=== PATIENT | female | born 1975 | race American Indian/Alaskan Native ===

== ENCOUNTER 2020-10-01 07:05 | Observation (INO) | payer OTHER ==
[2020-09-26 10:45] LABS: Basophils % (Auto) 0.5 % (0.0-1.8); Eosinophils % (Auto) 0.9 % (0.0-4.3); Hematocrit 21.9 % (30.3-42.9); Hemoglobin 6.6 gm/dl (10.1-14.3); Lymphocytes # (Auto) 1.2 K/mm3 (1.2-5.4); Lymphocytes % (Auto) 22.2 % (13.4-35.0); Mean Corpuscular HGB Conc 30 % (30-34); Mean Corpuscular Volume 61 fl (79-97); Monocytes # (Auto) 0.4 K/mm3 (0.0-0.8); Monocytes % (Auto) 7.1 % (0.0-7.3); Platelet Count 255 K/mm3 (140-440); Red Blood Count 3.62 M/mm3 (3.65-5.03); Red Cell Distribution Width 19.3 % (13.2-15.2)
--- NOTE | 2020-09-30 14:17 | History and Physical Report ---
History of Present Illness Date of examination: 09/23/20 Chief complaint: Menorrhagia, anemia and uterine fibroids History of present illness: This is a 44 year-old female with a long history of menorrhagia, uterine fibroids and anemia. She's required multiple blood transfusions and her bleeding has been unresponsive to medical therapy and conservative surgical intervention. She presents now for definitive therapy in the form of hysterectomy with removal of both fallopian tubes. Menstrual History: LMP (date): 09/10/2020 LMP - Character: heavy Menarche: 14 Menses interval: 28 days Menstrual flow: 7 days Past History : 3 Term Births: 3 Living Children: 2 # 1 Delivery date: 1992 Delivery type: # 2 Delivery type: Comments: killed # 3 Delivery type: QUALITY PROCESS AUDITOR History Operations: Myomectomy (2013) Endometrial Ablation: (2018) Tubal Ligation (2002) Abnormal PAP: negative Uterine Anomaly: positive fibroids Infection History HIV Risk Eval: no Hx of STD: None Active Medications (reviewed today): TRANEXAMIC ACID 650 MG ORAL TABLET (TRANEXAMIC ACID) 1300 mg(2 tabs) 3 times daily (3900 mg daily) for up to 5 days during monthly menstruation VITAMIN D (CHOLECALCIFEROL) 25 MCG (1000 UT) ORAL CAPSULE (CHOLECALCIFEROL) MULTIVITAMINS ORAL CAPSULE (MULTIPLE VITAMIN) EQL IRON SUPPLEMENT THERAPY 325 MG ORAL TABLET (FERROUS SULFATE) LEXAPRO TABLET (ESCITALOPRAM OXALATE TABS) DICLOFENAC SODIUM ER TABLET EXTENDED RELEASE 24 HOUR (DICLOFENAC SODIUM XR24H- TAB) Current Allergies (reviewed today): No known allergies Past Medical History: Reviewed history from 07/01/2020 and no changes required: Blood Transfusion x4 over the last 2year Anxiety/PTSD Depression Back Pain Anemia Past Surgical History: Reviewed history from 05/27/2020 and no changes required: Myomectomy (2013) Endometrial Ablation: (2018) Tubal Ligation (2002) Family History Summary: Reviewed history and no changes required: 09/30/2020 Other Family Member - Has No Family History of Uterine Cancer - Entered On: 06/30/2020 Other Family Member - Has No Family History of Small Bowel Cancer - Entered On: 06/30/2020 Other Family Member - Has No Family History of Stomach Cancer - Entered On: 06/30/2020 Other Family Member - Has No Family History of Pancreatic Cancer - Entered On: 06/30/2020 Other Family Member - Has No Family History of Kidney/Urinary Tract Cancer - Entered On: 06/30/2020 Other Family Member - Has No Family History of Spontaneous DVT-PE - Entered On: 06/30/2020 Other Family Member - Has No Family History of Colon Cancer - Entered On: Other Family Member - Has No Family History of Brain Cancer - Entered On: 06/30/2020 Other Family Member - Has No Family History of Breast Cancer - Entered On: 06/30/2020 Other Family Member - Has No Family History of Biliary Tract Cancer - Entered On: 06/30/2020 Mother - Has Family History of Ovarian Cancer - diagnosed age 51, now 60yo - Entered On: 06/30/2020 Social History: Reviewed history from 05/27/2020 and no changes required: Patient is Smoking History: Patient has never smoked. Risk Factors: Smoked Tobacco Use: Never smoker Alcohol use: yes Type: occ Previous Tobacco Use: Signed On - 07/01/2020 Smoked Tobacco Use: Never smoker Smokeless Tobacco Use: Never Drug use: no HIV high-risk behavior: no Previous Alcohol Use: Signed On - 07/01/2020 Alcohol use: yes Type: occ Drinks per day: social Exercise: yes Seatbelt use: 100 % PAP Smear History: Date of Last PAP Smear: 05/27/2020 Physical Exam Appearance: well developed, well nourished, no acute distress Other Exams Lungs: no rales, rhonchi, or wheezes Heart: S1, S2, no murmur, rub, or gallop Genitourinary Exam Uterus: deferred for EUA Impression & Recommendations: Problem # 1: Excessive and frequent menstruation with regular cycle (ICD-626.2) ([id number]) Diagnosis explained to patient . Discussed with patient various medical, surgic al and radiological therapies common for treatment including, but not limited to, myomectomy, hysterectomy and uterine artery embolization. Discussed risks and benefits of laparotomy, laparoscopy, vaginal and robotic assisted approaches for hysterectomies. Patient desires definitive treatment in the form of robot assisted laparoscopic total hysterectomy. The risks and alternatives for this surgery were reviewed with the patient. She was informed of the risks of the surgery including, but not limited to, pain, infection, bleeding possibly heavy enough to require a blood transfusion with associated risks of infections (hepatitis and HIV) and transfusion reactions, possible damage to bowel, bladder or ureter(s) and surrounding organs. . Patient understands that this surgery will make her sterile. Indications to abort a robotic/laparoscopic procedure and perform an open procedure were explained. Patient understands if her ovaries are removed she will become menopausal. She desires ovarian conservation. She was informed she may require surgery later to have her ovaries removed for a benign or mailgnant condition Patient advised the small risks of spreading of malignancy if morcellation is required during the surgery patient understands and approves performing if necessary. Questions answered. Consent reviewed and signed The patient was instructed/informed the following: The normal length of hospital stay for this procedure. Nothing to eat or drink after midnight the evening prior to surgery.. Pre-op instruction sheets given. Wound care instructions given. Problem # 2: Fibroids of uterus; Intramural (ICD-218.1) (IXQ89-A63.1) Problem # 3: Anemia secondary to blood loss (chronic) (ICD-280.0) (QAQ62-X86.0) Medications and Allergies Allergies Allergy/AdvReac Type Severity Reaction Status Date / Time No Known Allergies Allergy Unverified 09/25/20 13:46 Home Medications Medication Instructions Recorded Confirmed Last Taken Type Escitalopram [Lexapro] 10 mg PO DAILY 09/25/20 09/25/20 Unknown History Ferrous Sulfate [Iron 325 MG] 325 mg PO TID 09/25/20 09/25/20 Unknown History Active Meds: Active Medications Cefazolin Sodium (Ancef/Sterile Water 2 Gm/20 Ml) 2 gm in 20 mls @ 80 mls/hr IV PREOP NR; Protocol Exam Vital Signs Temp Pulse Resp BP Pulse Ox 98.7 F 82 18 106/53 99 09/26/20 10:20 09/26/20 10:20 09/26/20 10:20 09/26/20 10:20 09/26/20 10:20 Results - Labs 09/26/20 06:00 Assessment and Plan - Patient Problems (1) Excessive and frequent menstruation with regular cycle Status: Acute (2) Intramural leiomyoma of uterus Status: Acute (3) Anemia Status: Chronic (4) PTSD (post-traumatic stress disorder) Status: Chronic (5) Depression Status: Chronic (6) Body mass index 37.0-37.9, adult Status: Chronic
[2020-10-01] MEDS ORDERED: MAGNESIUM OXIDE 400 MG TAB PO ONE (08:04)
[2020-10-01] MEDS ORDERED: fentaNYL 100 MCG/2 ML INJ IV NR (08:04)
[2020-10-01] MEDS ORDERED: HYDROmorphone 1 MG/1 ML INJ IV PRN ×2 (08:04)
[2020-10-01] MEDS ORDERED: ONDANSETRON 4 MG/2 ML INJ IV PRN ×2 (08:04→16:20)
[2020-10-01] MEDS ORDERED: ACETAMINOPHEN 500 MG TAB PO NR (08:04)
--- NOTE | 2020-10-01 08:10 | Anesthesia Day of Surgery ---
Anesthesia Day of Surgery - Day of Surgery Patient Examined: Yes Patient H&P Reviewed: Yes Patient is NPO: Yes
[2020-10-01 08:12] LABS: Hematocrit 26.5 % (30.3-42.9); Hemoglobin 8.1 gm/dl (10.1-14.3)
--- NOTE | 2020-10-01 08:12 | Anesthesia Consultation ---
Anesthesia Consult and Med Hx Date of service: 10/01/20 - Airway Anesthetic Teeth Evaluation: Good ROM Head & Neck: Adequate Mental/Hyoid Distance: Adequate Mallampati Class: Class II Intubation Access Assessment: Good - Pre-Operative Health Status ASA Pre-Surgery Classification: ASA2 Proposed Anesthetic Plan: General Nerve Block: TAP - Pulmonary Hx Smoking: No - Cardiovascular System Hx Hypertension: No - Central Nervous System Hx Psychiatric Problems: Yes - Gastrointestinal Hx Gastroesophageal Reflux Disease: No - Endocrine Hx Non-Insulin Dependent Diabetes: No - Hematic Hx Anemia: Yes (Hgb 6.6--> received 2u PRBC) Hx Sickle Cell Disease: No - Other Systems Hx Cancer: No Hx Obesity: Yes
[2020-10-01] MEDS ORDERED: LACTATED RINGERS 1,000 ML IV SCH (08:15)
[2020-10-01] MEDS ORDERED: BUPIVACAINE/PF (0.25%) 2.5 MG/ML 30 ML VIAL INFILTRATI ONE (08:17)
[2020-10-01] MEDS ORDERED: dexAMETHasone 4 MG/ML VIAL ONE (08:17)
[2020-10-01] MEDS ORDERED: NEOSTIGMINE 10MG/10 ML INJ MDV ONE (08:48)
[2020-10-01] MEDS ORDERED: ONDANSETRON 4 MG/2 ML INJ ONE (08:48)
[2020-10-01] MEDS ORDERED: fentaNYL 100 MCG/2 ML INJ ONE (08:48)
[2020-10-01] MEDS ORDERED: ROCURONIUM 50 MG/5 ML INJ IV ONE (08:48)
[2020-10-01] MEDS ORDERED: GLYCOPYRROLATE 0.4 MG/2 ML INJ ONE (08:48)
[2020-10-01] MEDS ORDERED: HYDROmorphone 1 MG/1 ML INJ ONE (08:48)
[2020-10-01] MEDS ORDERED: dexAMETHasone 20 MG/5 ML VIAL ONE (08:48)
[2020-10-01] MEDS ORDERED: SUCCINYLCHOLINE CHLORIDE 200 MG/10 ML INJ MDV ONE (08:48)
[2020-10-01] MEDS ORDERED: propofoL 200 MG/20 ML VIAL IV ONE (08:49)
[2020-10-01] MEDS ORDERED: MIDAZOLAM 2 MG/2 ML INJ IV NR (09:00)
[2020-10-01] MEDS ORDERED: ceFAZolin/Water 2 GM/20 ML 2 GM/20 ML SYRINGE IV NR (09:00)
[2020-10-01] MEDS ORDERED: GABAPENTIN 300 MG CAP PO NR (09:00)
[2020-10-01] MEDS ORDERED: CELECOXIB 200 MG CAP PO NR (09:00)
[2020-10-01] MEDS ORDERED: NEOMY 40 MG/POLYMYXIN B 200,000 UNITS/ML (GU) AMPULE IR ONE ×2 (10:44→12:33)
[2020-10-01] MEDS ORDERED: SODIUM CHLORIDE 0.9% 500 ML 500 ML IV NR (11:10)
[2020-10-01] MEDS ORDERED: CITRIC ACID-SOD CITRATE 500 ML IV ONE (11:41)
[2020-10-01] MEDS ORDERED: SODIUM CHLORIDE 0.9% IRRIG SOLN 2000 ML IR ONE (12:34)
[2020-10-01] MEDS ORDERED: CITRIC ACID-SOD CITRATE SOLN 500 ML IV SOLN IV ONE (12:34)
[2020-10-01] MEDS ORDERED: SUGAMMADEX SODIUM 200 MG/2 ML VIAL IV ONE (13:51)
--- NOTE | 2020-10-01 14:21 | Post Anesthesia Evaluation ---
- Post Anesthesia Evaluation Patient Participated: Yes Airway Patent: Yes Stable Respiratory Function: Yes Nausea/Vomiting: No Temp > 96.8F: Yes Pain Manageable: Yes Adequeate Hydration: Yes Anesthesia Complications: No Block Receding Appropriately: Yes Patient on Ventilator: No
[2020-10-01] MEDS ORDERED: traMADol 50 MG TAB PO PRN (16:20)
[2020-10-01] MEDS ORDERED: METOCLOPRAMIDE 10 MG/2 ML INJ IV PRN (16:20)
[2020-10-01] MEDS ORDERED: D5W/LACTATED RINGERS 1,000 ML IV SCH (16:20)
[2020-10-01] MEDS: ceFAZolin/NS 1 GM/50 ML 1 GM/50 ML BAG IV SCH (17:19)
[2020-10-01] MEDS ORDERED: ACETAMINOPHEN 325 MG TAB PO SCH (18:00)
[2020-10-01] MEDS: ACETAMINOPHEN 500 MG TAB PO SCH (18:12)
[2020-10-01 19:04] LABS: Hematocrit 26.2 % (30.3-42.9); Hemoglobin 8.1 gm/dl (10.1-14.3)
[2020-10-01] MEDS: KETOROLAC 30 MG/1 ML INJ IV SCH (20:59)
[2020-10-01] MEDS: DOCUSATE SODIUM 100 MG CAP PO SCH (21:00)
[2020-10-01] MEDS: FAMOTIDINE 20 MG TAB PO SCH (21:00)
--- NOTE | 2020-10-01 22:24 | Operative Report ---
Operative Report Operative Report: Date: 10/01/2020 Preoperative diagnosis: 1. Menorrhagia 2. Uterine fibroid 3. Body mass index of 37 kg/m 4. 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 PTSD 6. Depression Postoperative diagnosis: 1. Menorrhagia 2. Uterine fibroid 3. Body mass index of 37 kg/m 4. 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 PTSD 6. Depression 7. Pelvic adhesions 8. Endometriosis Procedure: 1. Robotic-assisted laparoscopic total hysterectomy with bilateral salpingectomy 2. Ablation endometriosis on the right uterosacral 3. Lysis of adhesions Surgeon: Coby Barr MD Seed Sorter: Monica Mcconnell CSA Anesthesiologist: Dr. Dr. Cerrato Anesthesia: General endotracheal anesthesia EBL: Approximately 100 mL Findings: EUA: Uterus palpated to approximately 16 weeks. Uterus was sounded to 14 cm. Flow brings noted on both fallopian tubes. She had an adhesion of the anterior uterus to the anterior abdominal wall. Multiple thin adhesions were noted involving the posterior uterus to the bowel and pelvic sidewall. Endometrial implants were noted on bilateral uterosacral ligaments. Procedure: Patient was taken to the OR and placed in the supine position. General anesthesia was induced and an oral gastric tube was placed. Her neck and head were placed on foam support. Foam eye protection with goggles were secured in place. Then foam face protection was placed and secured. Foam shoulder pads were then positioned on her shoulders for Trendelenburg positioning. She was then placed in dorsolithotomy position. Exam under anesthesia as above. The abdomen and vagina were then prepped and draped in the usual sterile fashion. Timeout was performed. A Harris catheter was inserted into the bladder with drainage of clear yellow urine. The operative speculum was introduced into the vagina and the anterior lip of the cervix was grasped with single-toothed tenaculum. The uterus was sounded to 14 cm. The cervix was progressively dilated to allow the large V care uterine manipulator. The bulb of the manipulator was inflated and the speculum and tenaculum were removed. The cup of the manipulator was placed around the cervix and the blue occluder of the manipulator was properly positioned in the vagina and secured. A laparotomy sponge that was saturated with a solution of polymyxin and saline was placed in the vagina to ensure pneumoperitoneum. Sterile gloves were placed and attention was turned to the abdomen. A 10 mm midline vertical supraumbilical incision was made approximately 10 cm superior to the elevated fundus of the uterus. A 10-12 mm trocar with the laparoscope and camera attached was introduced through this incision under direct visualization. The abdomen was insufflated. No obvious bowel, bladder, ureteral, or major vascular injury was noted. The patient was then placed in steep Trendelenburg position and the following trochars were placed under direct visualization: 8 mm robotic trochars were placed through incisions made in the bilateral midclavicular lower abdominal region approximately 10 cm lateral to the midline incision, and a 5 mm trocar was placed through an incision made in the right lower lateral pelvis. The 10 mm laparoscope was then replaced by a 5 mm laparoscope that was placed through the 5 millimeter lateral trocar. The 12 mm trocar was then removed and the Caesar Acevedo fascial closure device was placed through the incision and a 0 Vicryl was placed through the fascia. Once the suture was secured the 12 mm trocar was reintroduced. Once the trochars were in the appropriate positions, the da Caity robot system was engaged. The EndoShears and bipolar device was placed through the 8 mm trochars and positioned then attention was turned to the console. The uterus was elevated and bilateral salpingectomy was performed in the usual fashion. Each tube was removed through the 5 mm trocar and sent to pathology in separate containers. The above-mentioned adhesions were then released to restore anatomy. Then the utero-ovarian ligaments were clamped, cauterized and incised bilaterally using 30 W of energy. Then the round ligaments were clamped, cauterized and incised bilaterally. The anterior leaf of the broad ligament was elevated and with careful blunt and sharp dissection the bladder flap was created and dissected away from the lower uterine segment and cervix. She was noted to have thickening of the right broad ligament. With careful blunt and sharp dissection the posterior leaf of the broad ligament was dissected away from the uterine vessels. The cup of the uterine manipulator was palpated both anteriorly and posteriorly. The bladder was further dissected away from the lower uterine segment. The uterine vessels were then clamped and cauterized bilaterally. Blanching of the uterus was then noted. Attention was again turned to the anterior lower uterine segment and the bladder was confirmed to be away from the operative field. Then attention was turned again to the posterior where the cup of the manipulator was palpated. At this point the endometrial implants were ablated. Then a colpotomy was performed down to the cup. The incision was extended in the lateral position to the uterine vessels that were again clamped and cauterized and incised. Continuing along the cup of the manipulator in a circumferential manner the colpotomy was completed. The uterus and cervix were then removed through the vaginal incision. The pelvis was irrigated with warm normal saline. A moist laparotomy sponge was placed in the vagina to maintain pneumoperitoneum. The vagina cuff was reapproximated using V LOC 180 suture. T hen a J stitch was performed to secure the suture. Again the pelvis was copiously irrigated with polymixin in warm normal saline. The laparotomy sponge was removed from the vagina. No obvious evidence of bowel, bladder, ureteral, or major vascular injury was noted. Once hemostasis was noted, Obey was applied to the operative field to ensure hemostasis. Then the instruments were removed, the robot was disengaged. The 12 mm trocar was removed and the fascia was ligated with the 0 Vicryl suture that was placed at the beginning of the procedure. The patient was taken out of Trendelenburg position, the abdomen was desufflated, the remaining trochars were removed. Incisions were reapproximated using 4-0 Monocryl in a subcuticular manner. Surgiseal was placed over the other incisions. The vagina was then inspected, the cuff was palpated to be intact and no bleeding was noted and clear yellow urine was draining into the Harris bag from the bladder at the end of the procedure. Counts were correct 3. Patient was taken to recovery room in stable condition.
[2020-10-01] MEDS: MORPHINE 4 MG/1 ML INJ IV PRN (22:40)
--- NOTE | 2020-10-01 22:44 | Progress Note ---
Assessment and Plan No complaints, good UO Operative findings and procedure explained. Plan of care discussed. Questions encouraged and answered. - Patient Problems (1) History of robot-assisted laparoscopic hysterectomy Current Visit: Yes Status: Acute (2) Anemia Current Visit: No Status: Chronic Plan to address problem: stable (3) Depression Current Visit: No Status: Chronic (4) PTSD (post-traumatic stress disorder) Current Visit: No Status: Chronic (5) Excessive and frequent menstruation with regular cycle Current Visit: No Status: Resolved (6) Intramural leiomyoma of uterus Current Visit: No Status: Resolved (7) Body mass index 37.0-37.9, adult Current Visit: No Status: Chronic Subjective - Subjective Date of service: 10/01/20 Principal diagnosis: DOS s/p RALTH Interval history: No complaints, good UO Objective - Vital Signs Latest vital signs: Vital Signs Temp Pulse Resp BP BP Pulse Ox 10/01/20 22:40 18 10/01/20 20:59 18 10/01/20 19:12 18 10/01/20 16:00 97.5 F L 62 12 111/58 94 10/01/20 15:45 97.5 F L 61 16 111/58 93 10/01/20 15:30 61 13 109/55 96 10/01/20 15:15 58 L 14 107/51 96 10/01/20 15:00 58 L 13 108/52 96 10/01/20 14:45 58 L 15 113/51 96 10/01/20 14:30 57 L 15 112/52 100 10/01/20 14:20 61 14 115/57 100 10/01/20 14:15 67 18 119/63 100 10/01/20 14:11 97.0 F L 63 18 123/62 100 10/01/20 09:46 14 10/01/20 09:15 64 12 103/60 98 10/01/20 09:10 16 10/01/20 09:08 63 10 L 108/55 98 10/01/20 09:03 62 12 99/58 98 10/01/20 08:58 60 11 L 103/53 98 10/01/20 08:53 62 9 L 107/54 100 10/01/20 08:48 64 14 102/57 100 10/01/20 08:46 16 10/01/20 08:43 62 13 108/66 100 05/18/21 08:38 59 L 13 105/68 99 10/01/20 08:33 65 13 107/60 98 10/01/20 08:25 16 10/01/20 08:10 97.5 F L 68 16 112/60 100 10/01/20 06:40 97.5 F L 68 16 112/60 100 Intake and Output 10/01/20 10/01/20 10/01/20 06:59 14:59 22:59 Intake Total 1250 Output Total 400 150 Balance 850 -150 Intake: IV 1250 Output: Urine 400 150 Indwelling Catheter 150 Other: Total, Output Amount 150 Voiding Method Toilet Indwelling Catheter - Exam Lungs: Present: Normal air movement - Labs Labs: Abnormal lab results 10/01/20 10/01/20 10/01/20 Range/Units 07:45 07:45 18:43 Hgb 8.1 L 8.1 L (10.1-14.3) gm/dl Hct 26.5 L 26.2 L (30.3-42.9) % Crossmatch See Detail
[2020-10-02] MEDS: ACETAMINOPHEN 500 MG TAB PO SCH ×3 (00:47→12:55)
[2020-10-02] MEDS: ceFAZolin/NS 1 GM/50 ML 1 GM/50 ML BAG IV SCH ×3 (00:51→04:27)
[2020-10-02] MEDS: KETOROLAC 30 MG/1 ML INJ IV SCH ×2 (04:24→10:10)
[2020-10-02 05:00] LABS: Hematocrit 24.1 % (30.3-42.9); Hemoglobin 7.5 gm/dl (10.1-14.3)
[2020-10-02] MEDS: FERROUS SULFATE 325 MG TAB PO SCH ×2 (08:22→13:12)
[2020-10-02] MEDS: MORPHINE 4 MG/1 ML INJ IV PRN (08:26)
--- NOTE | 2020-10-02 09:37 | Discharge Summary ---
Providers - Providers Date of Admission: 10/01/20 15:30 Date of discharge: 10/02/20 Attending physician: ELAYNE BRYSON Primary care physician: [facility] Hospitalization Condition: Good Procedures: RALTH, (B) salpingectomy, KEDAR Hospital course: Normal Disposition: DC- TO HOME OR SELFCARE Final Discharge Diagnosis (Prints w/discharge instructions): s/p RALTH - Discharge Diagnoses (1) History of robot-assisted laparoscopic hysterectomy Status: Acute (2) Anemia Status: Chronic (3) Depression Status: Chronic (4) PTSD (post-traumatic stress disorder) Status: Chronic (5) Excessive and frequent menstruation with regular cycle Status: Resolved (6) Intramural leiomyoma of uterus Status: Resolved (7) Body mass index 37.0-37.9, adult Status: Chronic Core Measure Documentation - Palliative Care Palliative Care/ Comfort Measures: Not Applicable - Core Measures Any of the following diagnoses?: none Exam - Constitutional Vitals: Temp Pulse Resp BP Pulse Ox 97.6 F 68 18 108/47 100 10/02/20 08:15 10/02/20 08:15 10/02/20 08:15 10/02/20 08:15 10/02/20 08:15 General appearance: Present: no acute distress (States shse's ambulated today without difficulty. , +flatus) - Neck Neck: Present: supple - Respiratory Respiratory effort: normal Respiratory: bilateral: CTA - Cardiovascular Rhythm: regular - Extremities Extremities: no ischemia, No edema (MT) - Abdominal General gastrointestinal: Present: soft, non-distended, normal bowel sounds Female genitourinary: Present: deferred - Integumentary Integumentary: Present: clear, warm, dry (Incision C/D/I, no s/s infection) - Psychiatric Psychiatric: appropriate mood/affect, intact judgment & insight, memory intact, cooperative - Neurologic Neurologic: CNII-XII intact Plan Activity: other (No sex, no driving. Ambulate ~1mile on your property a day. Void frequent to prevent pressureon the vagina. Use your incentive spirometer every hour while awake. ) Weight Bearing Status: Full Weight Bearing Diet: regular (Eat small meals frequently. ) Wound: open to air, keep clean and dry Special Instructions: no heavy lifting (greater than 15lbs) Additional Instructions: May alternate ibuprofen with 1 percocet every 3-4 hours for the first 24 hours after discharge then take pain medications as needed. Follow up with: [facility] [Primary Care Provider] - 7 Days ELAYNE BRYSON MD [Staff Physician] - (As scheduled) Forms: [facility] Discharge Summary Prescriptions: Docusate Sodium [Colace CAP] 100 mg PO DAILY #30 capsule oxyCODONE /ACETAMINOPHEN [Percocet 5/325 mg] 2 tab PO Q6H PRN #14 tablet PRN Reason: Pain, Moderate (4-6)
[2020-10-02] MEDS ORDERED: ESCITALOPRAM 10 MG TAB PO SCH (10:00)
[2020-10-02] MEDS: DOCUSATE SODIUM 100 MG CAP PO SCH (10:10)
[2020-10-02] MEDS: FAMOTIDINE 20 MG TAB PO SCH (10:10)
[2020-10-02] MEDS ORDERED: oxyCODONE /ACETAMINOPHEN 5-325MG TAB PO PRN (13:00)
[2020-10-02 13:11] VITALS: BP 112/54
[2020-10-02] MEDS ORDERED: IBUPROFEN 800 MG TAB PO PRN (15:30)
== END 2020-10-02 14:52 | disposition home or self-care (01) ==
LOC: OR 07:05 → OB 15:30
PROVIDERS: ADMIT Obstetrics & Gynecology; ATTEND Obstetrics & Gynecology
DX: N92.0 Excessive and frequent menstruation with regular cycle (principal); Z20.822 Contact with and (suspected) exposure to COVID-19; D25.1 Intramural leiomyoma of uterus; D64.9 Anemia, unspecified; F32.9 Major depressive disorder, single episode, unspecified; F43.10 Post-traumatic stress disorder, unspecified; F41.9 Anxiety disorder, unspecified; Z90.710 Acquired absence of both cervix and uterus; Z68.37 Body mass index [BMI] 37.0-37.9, adult; Z98.51 Tubal ligation status
CPT/HCPCS: 36415; 58573; 64450; 81025; 85014; 85018; 85025; 86850; 86900; 86901; 86920; 88302; 88307; 96365; 96366; 96375; 96376; A4217; G0378; J0330; J0690; J1100; J1170; J1885; J2250; J2270; J2405; J2704; J2710; J3010; J7120; S2900; U0003